=== PATIENT | male | born 1940 | race Caucasian/White ===

== ENCOUNTER 2018-09-25 18:43 | Inpatient (IN) | payer OTHER, BC ==
[~2018-09-25] VITALS: Ht 175.3 cm; Wt 94.8 kg
[2018-09-25 18:50] VITALS: BP 170/84
[2018-09-25] MEDS ORDERED: SYNTHROID125 MC1 PO (19:22)
[2018-09-25] MEDS ORDERED: PROSCAR 5MG TABL5 MG PO (19:22)
[2018-09-25] MEDS ORDERED: FLOMAX0.4 MG PO (19:22)
[2018-09-25] MEDS ORDERED: MULTIVITAMIN (19:23)
[2018-09-25] MEDS ORDERED: TUMS PO (19:27)
[2018-09-25 19:44] LABS: ABSOLUTE NEUTROPHILS 12.6 thou/uL (1.4-8.2); BASOPHILS 0.4 % (0.0-2.0); EOSINOPHILS 0.1 % (0.0-3.0); HEMATOCRIT 42.6 % (42.0-52.0); HEMOGLOBIN 14.3 gm/dL (14.0-18.0); LYMPHOCYTES 5.7 % (24.0-44.0); MCH 28.8 pg (26.0-34.0); MCHC 33.5 g/dL (28.0-37.0); MONOCYTES 5.4 % (1.0-8.0); PLATELET COUNT 204 thou/uL (150-400); POLYS 88.4 % (36.0-66.0); RBC 4.96 mil/uL (4.50-6.00); RDW 16.1 % (10.5-14.5); WBC 14.3 thou/uL (4.0-11.0)
[2018-09-25 19:47] LABS: ANION GAP 12 mmol/L (7-16); BUN 20 mg/dL (7-18); CALCIUM 8.9 mg/dL (8.5-10.1); CHLORIDE 102 mmol/L (98-107); CO2 27 mmol/L (21-32); CREATININE 1.8 mg/dL (0.7-1.3); GLUCOSE 211 mg/dL (74-106); POTASSIUM 3.4 mmol/L (3.5-5.1); SODIUM 141 mmol/L (136-145)
[2018-09-25 19:56] LABS: ALBUMIN 3.6 g/dL (3.4-5.0); SGOT 257 U/L (15-37); SGPT 315 U/L (30-65); TOTAL BILIRUBIN 1.5 mg/dL (<0.1-1.0); TOTAL PROTEIN 7.5 g/dL (6.4-8.2); TROPONIN-I <0.06 ng/mL (<0.06)
[2018-09-25 20:07] LABS: LIPASE 12550 U/L (73-393)
--- NOTE | 2018-09-25 20:24 | EKG ---
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 : 1940 Requested By: Chang Orourke Order Number: [id number] MD: Jackson Payne Measurements Intervals [place] Rate: 61 P: 0 SC: 219 QRS: -45 QRSD: 125 T: -25 QT: 432 QTc: 435 Interpretive Statements Sinus rhythm Borderline prolonged SC interval Nonspecific IVCD with LAD Left ventricular hypertrophy Nonspecific T abnormalities, inferior leads No previous ECG available for comparison Electronically Signed On 09-25-2018 20:24:29 ENTERPRISE ACCOUNT EXECUTIVE by Jackson Payne [email or web address] <ELECTRONICALLY SIGNED> By: Jackson Payne MD 09/25/182023 55 55 Jackson Payne MD /FE
[2018-09-25 21:17] VITALS: BP 170/84
[2018-09-25 21:37] VITALS: BP 170/84
[2018-09-25 22:13] VITALS: BP 129/62
[2018-09-26 04:14] VITALS: BP 114/65
[2018-09-26 05:05] LABS: HEMATOCRIT 39.6 % (42.0-52.0); MCH 28.5 pg (26.0-34.0); MCV 86.5 fL (80.0-100.0); RBC 4.57 mil/uL (4.50-6.00); RDW 16.5 % (10.5-14.5); WBC 12.2 thou/uL (4.0-11.0)
[2018-09-26 05:16] LABS: ALBUMIN 2.9 g/dL (3.4-5.0); CALCIUM 8.4 mg/dL (8.5-10.1); CHOLESTEROL 111 mg/dL (<200); CREATININE 1.5 mg/dL (0.7-1.3); HDL CHOLESTEROL 76 mg/dL (>40); LDL CHOLESTEROL 29 mg/dL (<100); TC:HDL 1.5 Ratio (Not establshd); TOTAL BILIRUBIN 2.5 mg/dL (<0.1-1.0); TOTAL PROTEIN 6.4 g/dL (6.4-8.2); TRIGLYCERIDE 34 mg/dL (<150); VLDL 7 mg/dL (<40)
[2018-09-26 05:18] LABS: SERUM ASSESSMENT Clear
[2018-09-26 05:19] LABS: POTASSIUM 4.4 mmol/L (3.5-5.1)
[2018-09-26 08:14] VITALS: BP 109/54
[2018-09-26 15:56] VITALS: BP 142/69
[2018-09-26 20:00] VITALS: BP 112/63
[2018-09-26 22:05] LABS: GLYCOHEMOGLOBIN (HGB A1C) 5.7 % (4.8-5.6)
[2018-09-27 07:31] LABS: HEMATOCRIT 38.8 % (42.0-52.0); HEMOGLOBIN 13.1 gm/dL (14.0-18.0); MCHC 33.8 g/dL (28.0-37.0); MCV 85.9 fL (80.0-100.0); RBC 4.52 mil/uL (4.50-6.00); RDW 16.8 % (10.5-14.5)
[2018-09-27 07:50] LABS: CREATININE 1.3 mg/dL (0.7-1.3); POTASSIUM 3.8 mmol/L (3.5-5.1)
[2018-09-27 08:03] VITALS: BP 130/69
[2018-09-27 19:13] VITALS: BP 121/69
[2018-09-28 07:20] LABS: HEMATOCRIT 35.7 % (42.0-52.0); MCH 28.8 pg (26.0-34.0); MCHC 33.8 g/dL (28.0-37.0); MCV 85.2 fL (80.0-100.0); RBC 4.19 mil/uL (4.50-6.00); RDW 16.2 % (10.5-14.5); WBC 6.5 thou/uL (4.0-11.0)
[2018-09-28 07:30] LABS: CALCIUM 7.7 mg/dL (8.5-10.1); CREATININE 1.1 mg/dL (0.7-1.3); POTASSIUM 3.6 mmol/L (3.5-5.1)
[2018-09-28 10:46] VITALS: BP 148/76
[2018-09-28 11:52] LABS: ALBUMIN 2.3 g/dL (3.4-5.0); DIRECT BILIRUBIN 4.4 mg/dL (<0.1-0.3); TOTAL BILIRUBIN 5.1 mg/dL (<0.1-1.0); TOTAL PROTEIN 5.5 g/dL (6.4-8.2)
[2018-09-28 20:04] VITALS: BP 153/62
[2018-09-29 08:23] LABS: ABSOLUTE NEUTROPHILS 11.3 thou/uL (1.4-8.2); BASOPHILS 0.2 % (0.0-2.0); HEMATOCRIT 37.5 % (42.0-52.0); HEMOGLOBIN 12.4 gm/dL (14.0-18.0); LYMPHOCYTES 7.2 % (24.0-44.0); MCH 28.2 pg (26.0-34.0); MCHC 33.1 g/dL (28.0-37.0); MCV 85.1 fL (80.0-100.0); MONOCYTES 6.4 % (1.0-8.0); PLATELET COUNT 230 thou/uL (150-400); POLYS 86.2 % (36.0-66.0); RBC 4.41 mil/uL (4.50-6.00); RDW 16.5 % (10.5-14.5); WBC 13.1 thou/uL (4.0-11.0)
[2018-09-29 08:43] LABS: ALBUMIN 2.5 g/dL (3.4-5.0); CALCIUM 7.9 mg/dL (8.5-10.1); CREATININE 1.2 mg/dL (0.7-1.3); POTASSIUM 3.8 mmol/L (3.5-5.1); TOTAL BILIRUBIN 4.4 mg/dL (<0.1-1.0); TOTAL PROTEIN 6.3 g/dL (6.4-8.2)
[2018-09-29 13:28] VITALS: BP 145/83
[2018-09-29 20:03] VITALS: BP 108/64
[2018-09-30 07:06] LABS: HEMATOCRIT 34.1 % (42.0-52.0); HEMOGLOBIN 11.4 gm/dL (14.0-18.0); MCH 28.5 pg (26.0-34.0); MCHC 33.4 g/dL (28.0-37.0); MCV 85.5 fL (80.0-100.0); RBC 3.98 mil/uL (4.50-6.00); RDW 16.6 % (10.5-14.5); WBC 12.3 thou/uL (4.0-11.0)
[2018-09-30 07:21] LABS: ALBUMIN 2.1 g/dL (3.4-5.0); TOTAL BILIRUBIN 2.4 mg/dL (<0.1-1.0); TOTAL PROTEIN 5.3 g/dL (6.4-8.2)
[2018-09-30 10:03] VITALS: BP 129/69
--- NOTE | 2018-09-30 11:52 | P ---
[facility] [place] [address] PROCEDURE REPORT Name: DONALDALIYA JR Room #: 221-P ADM IN ..#: [id number] Admission: 09/25/18 Attend Phys: Osito Kearns MD Discharge: Date of : 39 Report #: [id number] THIS REPORT FOR: //name// CC: [facility] physician/PCP Osito Plasencia MD DATE OF SERVICE: 09/29/2018 PROCEDURE PERFORMED: ERCP with sphincterotomy and stone removal. HISTORY OF PRESENT ILLNESS: The patient is a 78-year-old male with recent history of right upper quadrant abdominal pain, elevated lipase consistent with acute pancreatitis and elevated liver function test. He was noted on CT and ultrasound to have cholelithiasis as well as changes consistent with cholecystitis. He underwent a laparoscopic cholecystectomy by Dr. Plasencia yesterday. Intraoperative cholangiogram showed filling defects consistent with common bile duct stones with no passage of dye into the duodenum. The patient's bilirubin has been increasing from 1.5 on admission to a high of yesterday 5.1, today is 4.4; AST is 84; alkaline phosphatase 252; ALT 154; albumin 2.5. WBC is 13.1, yesterday was 6.5; hemoglobin 12.4; platelet count is 230. The patient is on IV Zosyn at this time. Plan is for ERCP. He does report some mild abdominal pain from the incision. No nausea or vomiting, no fevers or chills. DESCRIPTION OF PROCEDURE: The risks and benefits of the procedure were explained to the patient. Those risks including, but not limited to, bleeding, perforation and the risk of sedation as well as the potential for post-ERCP pancreatitis. He understood these risks and gave informed consent. The procedure was performed in the operating room under general anesthesia. Again, the patient was given IV Zosyn prior to the procedure, 50 mg indomethacin rectal suppository was also given. Next, using a standard Olympus side-viewing ERCP scope, the scope was placed in the patient's mouth and advanced under direct vision through the esophagus, stomach and into the second portion of the duodenum; at which point, the major papilla was noted. It was normal in appearance. I was able to cannulate the common bile duct and obtain a cholangiogram. Two large filling defects consistent with stones were noted. Unfortunately, he had a very tight S-shaped type of turn in the distal common bile duct and I spent approximately an hour using different sphincterotome, catheters and wires. Eventually, I was able to pop into the common bile duct with a catheter. At this point, a guidewire was advanced into the intrahepatic ducts and a large sphincterotomy was performed without difficulty. Next, the sphincterotome was removed and a balloon catheter was advanced over the wire. I was then able to remove 2 large stones without difficulty. Several balloon sweeps were then performed. Then, a balloon occlusion cholangiogram was obtained. No further filling defects were noted. There was a good evidence of bile drainage at this point. At this point, the scope was then withdrawn and [address] [address] PROCEDURE REPORT Name: ALIYA BENNETT JR Room #: 221-P [facility] IN [facility]#: [id number] Admission: 09/25/18 Attend Phys: Osito Kearns MD Discharge: Date of : 39 Report #: [id number] the procedure terminated. The patient tolerated the procedure well. IMPRESSION: 1. Two large common bile duct stones status post sphincterotomy and removal as described above. 2. Normal intrahepatic ducts. 3. No evidence of bile leak. RECOMMENDATIONS: 1. Observe the patient post-procedure. 2. We will continue to monitor liver function tests and white blood cell count. 3. We will advance diet as tolerated. Thank you for allowing me to participate in his care. <ELECTRONICALLY SIGNED> By: Josue Rios MD 09/30/18 1152 1235 1527 Josue Rios MD /nt
[2018-09-30] MEDS ORDERED: SENNA PLUS TAB1 EACH PO (14:22)
[2018-09-30] MEDS ORDERED: CALTRATE-600 W1 EACH PO (14:22)
[2018-09-30] MEDS ORDERED: PEPCID20 MG PO (14:22)
[2018-09-30] MEDS ORDERED: MUCINEX600 MG PO (14:22)
[2018-09-30 15:38] VITALS: BP 129/69
--- NOTE | 2018-09-30 16:06 | PATH ---
[facility] [place] [address] PATHOLOGY RPT PROCEDURE Name: ALIYA ELAINE JR Room #: 221-P [facility] IN .R.#: [id number] Admission: 09/25/18 Date of : 39 Discharge: Report #: [id number] Path Case #: [id number] [facility] Accession Number: [id number] . 01 Material submitted: . GALLBLADDER . 01 Clinical history: . Gallstone, pancreatitis . 02 Diagnosis: Gallbladder "gallbladder, cholecystectomy": - Moderate chronic cholecystitis with cholelithiasis. . (SHA:aneta; 09/30/18) COUNTS INCLUDE 234 BEDS AT THE [facility]/09/30/2018 . 02 Electronically signed: . Gasper Figueredo MD, Pathologist NPI- [id number] . 01 Gross description: . The specimen is received in formalin, labeled "Aliya Elaine Jr, gallbladder", is a previously opened gallbladder measuring 8.5 x 6.5 cm with an average 0.2 cm wall. The serosa is yellow-david and smooth. The mucosa is david, granular with possible necrotic focus toward the fundus. The wall has an average 0.1 cm in thickness. Within the container there is an oval yellow-brown calculus measuring 2.0 x 1.7 x 1.4 cm. No discrete masses are identified. Rn Occupational Health tissue is submitted in A1. (Possible necrosis section is inked black.) ([facility]; 09/28/2018) [facility]/ . 02 Pathologist provided ICD-10: K80.10 . 02 CPT . 056173 Specimen Comment: A courtesy copy of this report has been sent to Specimen Comment: [phone], . Specimen Comment: Report sent to and Performed at: [address] [id number] MD David Qureshi MD Phone: [phone] Performed at: [address] [address] PATHOLOGY RPT PROCEDURE Name: ALIYA ELAINE Room #: 221-P ADM IN M.R.#: [id number] Admission: 09/25/18 Date of : 39 Discharge: Report #: [id number] Path Case #: [id number] [address] [place] [id number] MD Sujatha Avila MD Phone: [phone]
--- NOTE | 2018-10-06 18:28 | O ---
[facility] [place] [address] OPERATIVE REPORT Name: ALIYA BENNETT JR Room #: 221-P [facility].#: [id number] Admission: 09/25/18 Attend Phys: Osito Kearns MD Discharge: 09/30/18 Date of : 39 Report #: [id number] THIS REPORT FOR: //name// CC: [facility] physician/PCP Osito Kearns DATE OF SERVICE: 09/28/2018 SURGEON: Jose Martin Plasencia MD MONOGRAM MACHINE OPERATOR: None. PREOPERATIVE DIAGNOSES: 1. Gallstone pancreatitis. 2. Possible acute cholecystitis. 3. Benign prostatic hypertrophy. 4. Hypothyroidism. POSTOPERATIVE DIAGNOSES: 1. Gallstone pancreatitis. 2. Acute cholecystitis with gallbladder hydrops. 3. Choledocholithiasis with obstruction of the common bile duct. 4. Benign prostatic hypertrophy. 5. Hypothyroidism. PROCEDURE: Laparoscopic cholecystectomy with intraoperative cholangiogram. ANESTHESIA: General endotracheal anesthesia and local anesthetic. ESTIMATED BLOOD LOSS: 10 mL. SPECIMEN: Gallbladder. COMPLICATIONS: None appreciated. INDICATIONS FOR PROCEDURE: This is a 78-year-old male patient who was seen in the [place] [facility] with sharp right upper quadrant abdominal pain starting at 5:00 in the evening prior to his admission. His pain came on suddenly, 30 minutes postprandially. The patient then developed nausea and had an episode of emesis while en route to the hospital. He had an elevated white blood cell count of 14.3 and elevated liver function test with an elevated lipase of 12,550 as well. Abdominal x-ray revealed a large round calcification in the right upper quadrant of the abdomen felt to represent a large gallstone. This was followed by a CT scan, which confirmed the large gallstone within the gallbladder as well as gallbladder distention and pericholecystic inflammatory stranding. The patient's lipase normalized over the ensuing couple days. The [address] [address] OPERATIVE REPORT Name: ALIYA BENNETT JR Room #: 221-P [facility]#: [id number] Admission: 09/25/18 Attend Phys: Osito Kearns MD Discharge: 09/30/18 Date of : 39 Report #: [id number] patient presents now for laparoscopic cholecystectomy with cholangiogram. OPERATIVE FINDINGS: Upon entrance in the abdominal cavity, acute inflammatory changes were present around the gallbladder. The critical view consisting of the cystic artery, cystic duct and lower edge of the gallbladder forming a window through which the liver was visible was seen prior to clipping the cystic duct for cholangiogram. The cholangiogram showed at least 2 common bile duct stones in the distal duct with no drainage of contrast into the duodenum. The cystic duct was also enlarged and required Endoloop placement for definitive closure. No other significant intra-abdominal pathology was seen. After removal of the gallbladder from the abdominal cavity, it was open on the back table. The gallbladder itself contained hydropic fluid and a moderate sized mixed gallstone as well as several smaller pigmented gallstones. DESCRIPTION OF PROCEDURE IN DETAIL: After the risks, benefits, and expectations of the operation were discussed in detail with the patient, informed consent was obtained. The patient was identified in the preoperative holding area. He was given IV antibiotics as documented in the chart in line with [facility] metrics. The patient was then taken to the operating room and he was placed in the supine position. SCDs were placed on the patient's bilateral lower extremities and pneumatic compression was initiated. The patient was then given IV sedation and he was intubated without incident. His abdomen was prepped and draped in the standard sterile fashion. A time-out was performed to identify the correct patient and procedure. Local anesthetic was infiltrated into the skin and subcutaneous tissue supraumbilically where a curvilinear incision was made with a #15 blade scalpel. Dissection was carried down to the fascia. A small transverse fascial incision was made. An 11 mm Visiport was placed intraperitoneally with a 0-degree angled laparoscope. Pneumoperitoneum was achieved with insufflation of carbon dioxide to 15 mmHg. A 30-degree angled laparoscope was then inserted. The patient was placed in the reverse Trendelenburg position, rotated to his left. A subxiphoid 5 mm and right subcostal 5 mm ports x 2 were placed under direct visualization after local anesthetic was infiltrated into the skin and subcutaneous tissue and appropriately sized incisions were made. Operative findings were as noted above. The dome of the gallbladder was retracted in cephalad direction. The gallbladder peritoneum was then scored medially and laterally with the ultrasonic dissector. Dissection was carried out on the cystic artery and cystic duct to identify both structures as the only 2 structures entering the gallbladder. A clip was then placed on the cystic duct at its junction with the neck of the gallbladder. A ductotomy was created. The cholangiocatheter was inserted and a cholangiogram was performed with findings as noted above. The stones were large enough within the distal common bile duct that they would not pass with flushing of the duct. The cystic duct was then triply clipped and [facility] [address] [place] [address] OPERATIVE REPORT Name: ALIYA BENNETT JR Room #: 221-P [facility] IN [facility]#: [id number] Admission: 09/25/18 Attend Phys: Osito Kearns MD Discharge: 09/30/18 Date of : 39 Report #: [id number] divided with the ultrasound dissector. A good seal was present; however, the large diameter of the duct required placement of a 2-0 PDS Endoloop. The clips were left in place. The cystic artery was clipped and divided as well with good hemostasis. The gallbladder was then dissected out of the liver bed. After its detachment, it was placed in an Endobag and removed through the supraumbilical port site. A [id number]-ai-[id number] 0 PDS suture was placed to close the fascial defect. The suture was tagged and the port was replaced. The abdominal cavity was then reentered. The liver bed was examined for hemostasis. A small amount of oozing was present. Camila hemostatic powder was then placed within the liver bed to ensure hemostasis. No other significant intra-abdominal pathology was identified. The abdominal cavity had been irrigated and suctioned and return of all drainage ran clear. The 11 mm port was removed and the suture was tied under direct visualization to ensure no incorporation of intra-abdominal content. The abdominal cavity was then desufflated and the ports were removed. Interrupted subcuticular 4-0 Monocryl sutures and Dermabond were used to close the skin incisions. The patient tolerated the procedure well. He was awakened, extubated, and taken to the recovery room in stable condition with no apparent intraoperative complications. The patient would benefit from endoscopic evaluation and decompression with an ERCP given that the stones appeared to be obstructive. GI has been informed of this. <ELECTRONICALLY SIGNED> By: Jose Martin Plasencia MD, FACS 10/06/18 1828 1525 22 Jose Martin Plasencia MD, FACS /nt
== END 2018-09-30 16:40 | disposition home or self-care (01) | DRG 417 ==
LOC: ER 18:43 → EROBS 20:56 → SICU 20:56 → 4W 21:43 → SICU 09-26 15:50 → ENTRNSPT 09-30 16:27 → EDTRNSPT 09-30 16:35 → SICU 09-30 16:40
PROVIDERS: Emergency Medicine; Nurse Practitioner Family; Specialist; Surgery; ADMIT Hospitalist
PROC: BF141ZZ Fluoroscopy of Gallbladder, Bile Ducts and Pancreatic Ducts using Low Osmolar Contrast (ICD-10-PCS; principal; 2018-09-28)
PROC: 0FT44ZZ Resection of Gallbladder, Percutaneous Endoscopic Approach (ICD-10-PCS; principal; 2018-09-28)
PROC: 0FC98ZZ Extirpation of Matter from Common Bile Duct, Via Natural or Artificial Opening Endoscopic (ICD-10-PCS; 2018-09-29)
DX: K80.62 Calculus of gallbladder and bile duct with acute cholecystitis without obstruction (principal); K85.10 Biliary acute pancreatitis without necrosis or infection; N17.0 Acute kidney failure with tubular necrosis; K82.1 Hydrops of gallbladder; K21.9 Gastro-esophageal reflux disease without esophagitis; K44.9 Diaphragmatic hernia without obstruction or gangrene; K59.00 Constipation, unspecified; N40.0 Benign prostatic hyperplasia without lower urinary tract symptoms; E03.9 Hypothyroidism, unspecified; J02.9 Acute pharyngitis, unspecified; Z79.899 Other long term (current) drug therapy; Z88.8 Allergy status to other drugs, medicaments and biological substances; Z87.891 Personal history of nicotine dependence
CPT/HCPCS: 10040; 15002; 50010; 50101; 50249; 50411; 50555; 50558; 50900; 50962; 51297; 51489; 51975; 52265; 52266; 52287; 53307; 54022; 54118; 55245; 55317; 56462; 56525; 56526; 62110; 62900; 70005

== ENCOUNTER 2019-11-14 16:58 | Emergency (ER) | payer OTHER, BC ==
[~2019-11-14] VITALS: Ht 177.8 cm; Wt 90.7 kg
--- NOTE | ~2019-11-14 | EKG ---
[facility] [address] [place] [address] ELECTROCARDIOGRAM REPORT Name: ALIYA BENNETT Room #: PRE [facility].#: [id number] Admission: Attend Phys: Discharge: Date of : 39 Report #: [id number] THIS REPORT FOR: cc: PAULINA - Linda family physician/PCP PAULINA - Linda family physician/PCP Melissa Torres MD ~ THIS REPORT FOR: //name// [facility] ED Test Date: 2019-11-14 Test Time: 17:27:24 Pat Name: ALIYA BENNETT Department: Room: Gender: M Progress Clerk: CAIO : 1940 Requested By: Kim Rodríguez Order Number: [id number] MD: Measurements Intervals [place] Rate: 63 P: 11 MS: 221 QRS: -49 QRSD: 101 T: 4 QT: 420 QTc: 430 Interpretive Statements Sinus rhythm Prolonged MS interval Left anterior fascicular block Low voltage, precordial leads RSR' in V1 or V2, right VCD or RVH Compared to ECG 09/25/2018 18:56:34 Left anterior fascicular block now present Low QRS voltage now present Right ventricular hypertrophy now present RSR' in V1 or V2 now present Intraventricular conduction delay no longer present Left ventricular hypertrophy no longer present T-wave abnormality no longer present [email or web address] By: 1727 26 Epiphany EpiphanyMD /FE
[~2019-11-14 16:58] MED LIST: CALTRATE-600 W1 EACH PO; FLOMAX0.4 MG PO; MUCINEX600 MG PO; MULTIVITAMIN; PEPCID20 MG PO; PROSCAR 5MG TABL5 MG PO; SENNA PLUS TAB1 EACH PO; SYNTHROID125 MC1 PO; TUMS PO
[2019-11-14 17:50] LABS: ABSOLUTE NEUTROPHILS 7.3 thou/uL (1.4-8.2); BASOPHILS 0.3 % (0.0-2.0); EOSINOPHILS 0.1 % (0.0-3.0); HEMATOCRIT 36.5 % (42.0-52.0); LYMPHOCYTES 6.2 % (24.0-44.0); MCH 28.3 pg (26.0-34.0); MCHC 32.8 g/dL (28.0-37.0); MCV 86.1 fL (80.0-100.0); MONOCYTES 4.2 % (1.0-8.0); PLATELET COUNT 171 thou/uL (150-400); POLYS 89.2 % (36.0-66.0); RBC 4.24 mil/uL (4.50-6.00); RDW 15.9 % (10.5-14.5); WBC 8.2 thou/uL (4.0-11.0)
[2019-11-14 18:01] LABS: CALCIUM 7.8 mg/dL (8.5-10.1); CREATININE 1.2 mg/dL (0.7-1.3); POTASSIUM 3.6 mmol/L (3.5-5.1)
[2019-11-14 18:11] LABS: ALBUMIN 3.2 g/dL (3.4-5.0); TOTAL BILIRUBIN 0.4 mg/dL (<0.1-1.0); TOTAL PROTEIN 6.7 g/dL (6.4-8.2)
[2019-11-14 19:35] LABS: URINE BILIRUBIN NEGATIVE (Negative); URINE BLOOD NEGATIVE (Negative); URINE CLARITY CLEAR; URINE COLOR YELLOW; URINE GLUCOSE-RANDOM* NEGATIVE (Negative); URINE KETONES NEGATIVE (Negative); URINE LEUKOCYTES-REFLEX NEGATIVE (Negative); URINE NITRITE-REFLEX NEGATIVE (Negative); URINE PROTEIN (DIPSTICK) NEGATIVE (Negative); URINE UROBILINOGEN 0.2 E.U./dl (0.2-1.0)
[2019-11-14 19:57] VITALS: BP 114/54
== END 2019-11-14 20:00 | disposition home or self-care (01) ==
LOC: ER 16:58
PROVIDERS: Nurse Practitioner Family
DX: J10.1 Influenza due to other identified influenza virus with other respiratory manifestations (principal); Z90.49 Acquired absence of other specified parts of digestive tract; Z85.46 Personal history of malignant neoplasm of prostate; Z87.891 Personal history of nicotine dependence; Z88.8 Allergy status to other drugs, medicaments and biological substances

== ENCOUNTER → 2019-12-10 | Outpatient (CLI) | payer OTHER, BC ==
[~2019-12-10] VITALS: Ht 177.8 cm; Wt 90.7 kg
[~2019-12-10] MED LIST changes: +TUMS300 MG PO
--- NOTE | 2019-12-14 18:07 | PATH ---
[facility] [place] [address] PATHOLOGY RPT PROCEDURE Name: DONALDALIYA Room #: REG [facility] Andres.#: [id number] Admission: 12/10/19 Date of : 39 Discharge: Report #: [id number] Path Case #: [id number] [facility] Accession Number: [id number] . 01 Material submitted: . PART A: stomach - BX OF GASTRITIS PART B: esophagus - BX OF DISTAL ESOPHAGUS. Modifiers: distal . 01 Clinician provided ICD-10: . . 01 Clinical history: . Hiatal hernia A. Rule out H. pylori B. Rule out Proctor's . 02 Diagnosis: A. Gastric mucosa, gastritis rule out H. pylori, endoscopic biopsy: - Mild to moderate reactive gastropathy. - Negative for intestinal metaplasia or atrophy. - Negative for Helicobacter pylori (properly controlled immunohistochemical stain performed). . B. 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 - Negative for dysplasia. . 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 02 Comment: The above diagnosis of Proctor's esophagus is made due to presence of intestinal metaplasia and with the assumption that the biopsies were obtained from the columnar mucosa in the distal esophagus located at least 1 cm proximal to the top of the gastric folds as per the 2016 ACG guidelines. 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 02 Electronically signed: . Sujatha Avila MD, Pathologist NPI- [id number] . 01 Gross description: . A. The specimen is received in formalin, labeled "Aliya Elaine Jr, BX of gastritis" and consists of 4 fragments of pink-david tissue measuring [facility] [address] [place] [address] PATHOLOGY RPT PROCEDURE Name: ALIYA ELAINE JR Room #: REG CLI [facility]#: [id number] Admission: 12/10/19 Date of : 39 Discharge: Report #: [id number] Path Case #: [id number] between 0.2 x 0.2 cm and 0.7 x 0.3 cm which are entirely submitted in A1. . B. The specimen is received in formalin, labeled "Aliya Elaine Jr, BX of distal esophagus" and consists of multiple david-brown fragments of tissue measuring 1.1 x 0.5 x 0.2 cm in aggregate which are entirely submitted in B1. (SDY; 12/13/2019) SYU/SYU 12/13/2019 1512 Local . 02 Pathologist provided ICD-10: K31.9, K22.70 . 02 CPT . 435169, 411099, B67983 Specimen Comment: A courtesy copy of this report has been sent to [phone] Specimen Comment: Report sent to Performed at: [address], [place] [id number] MD David Qureshi MD Phone: [phone] Performed at: [address] [id number] MD Sujatha Avila MD Phone: [phone]
--- NOTE | 2019-12-15 09:08 | P ---
[facility] [place] [address] PROCEDURE REPORT Name: ALIYA BENNETT [id number] Admission: 12/10/19 Attend Phys: Josue Martinez Discharge: Date of : 39 Report #: [id number] THIS REPORT FOR: cc: FAM - No family physician/PCP PAULINA - No family physician/PCP Josue Rios MD ~ CC: Josue Rios [facility] physician/PCP Rodrigo Aquino MD DATE OF SERVICE: 12/10/2019 PROCEDURE PERFORMED: Upper endoscopy with biopsies. HISTORY OF PRESENT ILLNESS: The patient is an 79-year-old male who was seen in the office on 11/18/2019 with history of gastroesophageal reflux disease, currently taking Pepcid 20 mg on a daily basis. Despite this, he has intermittent heartburn symptoms, especially at night. The patient underwent an ERCP by myself for choledocholithiasis in September 2018. He was noted to have a large hiatal hernia at that time. He also uses Tums on a p.r.n. basis. He denies any dysphagia, nausea or vomiting. DESCRIPTION OF PROCEDURE: The risks and benefits of the procedure were explained to the patient, those risks including but not limited to bleeding, perforation and the risk of sedation. He understood these risks and gave informed consent. Sedation was given using propofol per anesthesia. Next, using a standard Olympus upper endoscope, the scope was placed in the patient's mouth and advanced under direct vision through the esophagus, stomach and into the second portion of the duodenum. The upper and mid esophagus was normal in appearance. In the distal esophagus, approximately 10 cm segment of possible Proctor's was noted. Also noted was grade B erosive esophagitis. Multiple biopsies were obtained to rule out Proctor's esophagus. Upon entering the stomach, a large hiatal hernia was once again noted. Within the hernia, there was evidence of Rafael ulcers. No evidence of bleeding. Biopsies were obtained to rule out H. pylori. The gastric antrum and pylorus was normal. The duodenal bulb, first and second portion were all normal. The scope was then withdrawn and the procedure terminated. The patient tolerated the procedure well. IMPRESSION: 1. 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 Biopsies were obtained. 2. Grade B erosive esophagitis. 3. Large hiatal hernia. 4. Rafael ulcers. RECOMMENDATIONS: [address] [address] PROCEDURE REPORT Name: ALIYA BENNETT [id number] Admission: 12/10/19 Attend Phys: Josue Martinez Discharge: Date of : 39 Report #: [id number] 1. Await biopsy results. 2. Discontinue Pepcid and start PPI therapy long-term. Thank you for allowing me to participate in his care. <ELECTRONICALLY SIGNED> By: [place] [id number] [phone] Josue Rios MD /laquita
== END | disposition home or self-care (01) ==
LOC: GI 07:49
DX: K31.9 Disease of stomach and duodenum, unspecified (principal); K22.70 Barrett's esophagus without dysplasia; K44.9 Diaphragmatic hernia without obstruction or gangrene; K21.9 Gastro-esophageal reflux disease without esophagitis; E03.9 Hypothyroidism, unspecified; Z98.890 Other specified postprocedural states; Z79.899 Other long term (current) drug therapy; Z87.891 Personal history of nicotine dependence; Z85.828 Personal history of other malignant neoplasm of skin; Z85.46 Personal history of malignant neoplasm of prostate; Z98.41 Cataract extraction status, right eye; Z98.42 Cataract extraction status, left eye; Z90.49 Acquired absence of other specified parts of digestive tract; Z88.8 Allergy status to other drugs, medicaments and biological substances
CPT/HCPCS: 62110; 62900